=== PATIENT | female | born 1950 | race Caucasian/White ===

== ENCOUNTER 2020-12-15 18:23 | Emergency (ER) | payer OTHER ==
[~2020-12-15] VITALS: Ht 160 cm; Wt 74.8 kg
[~2020-12-15 18:23] MED LIST: BLOOD PRESSURE MED; METO5A PO; OXYACE5T PO
[2020-12-15] MEDS ORDERED: LOSARTAN-HCTZ1 EACH (19:28)
== END 2020-12-15 21:07 | disposition home or self-care (01) ==
LOC: ER 18:23
DX: G43.909 Migraine, unspecified, not intractable, without status migrainosus (principal); I10 Essential (primary) hypertension
CPT/HCPCS: 96374; 96375; 99282-25; J0780; J1100; J1200; J1885; J7030